=== PATIENT | male | born 1985 | race Caucasian/White ===

== ENCOUNTER 2018-04-27 16:26 | Emergency (ER) | payer OTHER ==
[~2018-04-27] VITALS: Ht 170.2 cm; Wt 75.3 kg
[2018-04-27] MEDS ORDERED: NAPROXEN500 MG (16:36)
[2018-04-27] MEDS ORDERED: CYCLOBENZAPRINE10 MG (16:36)
[2018-04-27] MEDS ORDERED: SKELAXIN800 MG PO (18:19)
[2018-04-27] MEDS ORDERED: IBUPROFEN800 MG PO (18:19)
[2018-04-27] MEDS ORDERED: PERCOCET 5-3251 EACH PO (18:19)
== END 2018-04-27 18:30 | disposition home or self-care (01) ==
LOC: ER 16:26
DX: M62.830 Muscle spasm of back (principal)

== ENCOUNTER 2019-04-02 08:00 | Emergency (ER) | payer OTHER ==
[~2019-04-02] VITALS: Ht 170.2 cm; Wt 77.1 kg
[~2019-04-02 08:00] MED LIST: CYCLOBENZAPRINE10 MG; IBUPROFEN800 MG PO; NAPROXEN500 MG; PERCOCET 5-3251 EACH PO; SKELAXIN800 MG PO
[2019-04-02] MEDS ORDERED: NORFLEX100MG PO (11:06)
[2019-04-02] MEDS ORDERED: KETO10TA2 PO (11:06)
== END 2019-04-02 11:29 | disposition home or self-care (01) ==
LOC: ER 08:00
DX: M54.5 Low back pain (principal)

== ENCOUNTER 2021-11-06 11:24 | Emergency (ER) | payer OTHER ==
[~2021-11-06] VITALS: Ht 170.2 cm; Wt 81.6 kg
[~2021-11-06 11:24] MED LIST changes: +KETO10TA2 PO; +NORFLEX100MG PO
[2021-11-06] MEDS ORDERED: DICLOFENAC POTA50 MG PO (15:59)
[2021-11-06] MEDS ORDERED: ORPHENADRINE C100 MG PO (15:59)
== END 2021-11-06 16:58 ==
LOC: ER 11:24
DX: M54.59 Other low back pain (principal)